=== PATIENT | female | born 1975 | race Caucasian/White ===

== ENCOUNTER 2020-06-11 16:39 | Emergency (ER) | payer SELFPAY ==
[2020-06-11] MEDS ORDERED: Boostrix 0.5 ML (Tdap) VIAL ONE (17:36)
[2020-06-11 18:13] LABS: #Basophils 0.1 thou/uL (0.0-0.2); #Lymphocytes 1.7 thou/uL (1.20-3.40); #Monocytes 0.9 thou/uL (0.11-0.59); #Neutrophils 6.2 thou/uL (1.40-6.50); %Basophils 0.7 % (0.0-1.0); %Eosinophils 0.5 % (0.0-10.0); %Lymphocytes 19.3 % (21.0-51.0); %Neutrophils 69.6 % (42.0-75.0); Hemoglobin 13.7 g/dL (12.0-16.0); Mean Corpuscular HGB CONC 33.6 g/dL (32.0-36.0); Mean Corpuscular Hemoglobin 31.1 pg (27.0-31.0); Mean Corpuscular Volume 92.7 fL (78.0-98.0); Mean Platelet Volume 8.6 fL (7.4-10.4); Platelet Count 207 thou/uL (130-400); RBC Distribution Width 11.3 % (11.5-14.5); Red Blood Cell (RBC) Count 4.38 mill/uL (4.20-5.40); White Blood Cell (WBC) Count 8.9 thou/uL (4.8-10.8)
[2020-06-11] MEDS ORDERED: levETIRAcetam 500 MG TAB PO SCH (18:15)
[2020-06-11 18:34] LABS: BHCG - Serum Negative (NEGATIVE); Pregs Control Background? CLEAR/WHITE (CLR/WHITE); Pregs Control Bar Appear? YES (CONTROL BAR)
[2020-06-11 18:35] LABS: ALT (SGPT) 19 U/L (8-55); AST (SGOT) 23 U/L (5-34); Albumin 3.7 g/dL (3.5-5.0); Alkaline Phosphatase 60 U/L (40-110); Anion Gap 15 mmol/L (10-20); BUN (Urea Nitrogen) 10 mg/dL (7.0-18.7); Bilirubin, Total 0.4 mg/dL (0.2-1.2); Calc. Creatinine Clearance 0 mL/min (70-130); Calcium 8.7 mg/dL (7.8-10.44); Carbon Dioxide 21 mmol/L (22-29); Chloride 107 mmol/L (98-107); Glucose 94 mg/dL (70-105); Potassium 3.5 mmol/L (3.5-5.1); Protein, Total 6.7 g/dL (6.0-8.3); Sodium 139 mmol/L (136-145)
--- NOTE | 2020-06-11 18:49 | CT ---
CT Brain WO Con: 06/11/2020 6:30 PM CLINICAL HISTORY: Fall with unwitnessed seizure and trauma to the head. IMAGING TECHNIQUE: Multiple CT images were obtained of the brain without IV contrast. COMPARISON: None. FINDINGS: BRAIN: Evidence of acute infarct: None. Evidence of chronic ischemic change:None. Evidence of intracranial hemorrhage: None. Evidence of brain volume loss:None. Evidence of midline shift: Third ventricle and septum pellucidum are midline. Ventricles: Normal. No hydrocephalus. SKULL: Nondisplaced right nasal bone fracture is suspected. VISUALIZED PARANASAL SINUSES: Clear. MASTOID AIR CELLS: There is partial opacification of the left mastoid air cells. EXTRACRANIAL SOFT TISSUES: There is a large left frontal scalp contusion IMPRESSION: No acute intracranial abnormality. Large left frontal scalp contusion. Suspected nondisplaced right nasal bone fracture. Nonspecific partial opacification of left mastoid air cells.
--- NOTE | 2020-06-11 18:55 | CT ---
EXAM: CT facial bones PROVIDED CLINICAL HISTORY: History of unwitnessed seizure and fall with head and facial trauma COMPARISON: None FINDINGS: Bones: Nasal bones: There is a nondisplaced right-sided nasal bone fracture. Maxilla: Intact. Mandible: Intact. Zygomatic arches: Intact. Pterygoid plates: Intact. Orbital rims: Intact. Orbital wall and floor: There is a 1.7 x 1.7 cm right inferior orbital floor defect containing orbita l fat without evidence by CT for entrapment. A definite air-fluid level is present within the right maxillary sinus. These may reflect sequela of remote orbital floor injury. Is no evidence of inflamma tory reticulation of the orbital fat. Frontal skull: Intact. Paranasal sinuses: Small air-fluid level is present within the left maxillary sinus. No definite left maxillary sinus wall fracture is evident. Orbits: The [place] lenses are in place. The orbital fat is preserved. Visualized intracranial contents: Intact. Cervical spine: Intact. Soft tissues: There is soft tissue contusion involving the left frontal scalp and nasal bridge IMPRESSION: 1. Nondisplaced right nasal bone fracture. 2. Right inferior orbital floor fracture defect with mild herniation of orbital fat. There is no inf lammatory change of the orbital fat. No air-fluid level seen within the right maxillary sinus. Findings are suspicious for remote right inferior orbital floor fracture. 3. Small air-fluid left maxillary sinus may be related to fluid accumulation within the patient's na lonnie bone fracture. No definite left maxillary sinus fracture is evident. 4. Left frontal scalp and nasal bridge contusions.
[2020-06-11] MEDS ORDERED: HYDROcodone/Acetaminophen 5/325 mg Tablet ONE (20:40)
== END 2020-06-11 20:45 | disposition home or self-care (01) ==
LOC: ERS 16:39
DX: G40.909 Epilepsy, unspecified, not intractable, without status epilepticus (principal); S02.31XA Fracture of orbital floor, right side, initial encounter for closed fracture; S02.2XXA Fracture of nasal bones, initial encounter for closed fracture; X58.XXXA Exposure to other specified factors, initial encounter
CPT/HCPCS: 36415; 70450; 70486; 80053; 84703; 85025; 90471; 90715; 93005